=== PATIENT | male | born 1970 | race Caucasian/White ===

== ENCOUNTER 2019-06-06 12:16 | Emergency (ER) | payer BC, MEDICAID, OTHER ==
[2019-06-06 13:22] VITALS: BP 121/82
--- NOTE | 2019-06-06 13:53 | UC ---
General HPI - HPI Summary HPI Summary: 1. 3 MONTH HX OF INCREASING WEAKNESS, NAUSEA AND LOSS OF APPETITE. HE HAS A HX OF LEUKEMIA AND LAST HAD CHEMO TX ABOUT 1 MONTH AGO. HE IS BEING TX BY [facility] FOR THE LEUKEMIA. HE IS ON ZOFRAN WHICH DOESN'T HELP. HE DENIES F/C'S BUT DOES ADMIT TO A 10# WEIGHT LOSS SINCE HIS LAST VISIT/TX AT [facility]. PT GOES ON TO OFFER HE HAS HAD A WORSENING IN HIS ADENOPATHY AND THEY WANTED TO DO A LYMPH NODE BIOPSY; HOWEVER, HE CAN NOT MISS WORK FOR THAT SURGERY. PT WONDERS IF I CAN GIVE HIM "SOMETHING STRONGER" FOR THE NAUSEA. HE DENIES ABDOMINAL PAIN AND DIARRHEA. 2. SKIN TAG ON R LOWER EYE LID FOR ABOUT 3-4 MONTHS. WANTS TO HAVE IT REMOVED. 3. PAIN TO THE R SHOULDER, MAINLY LATERAL-POSTERIOR FOR ABOUT 1 YEAR. MUCH WORSE IF HE SLEEPS ON IT. NO HX INJURY, LIMITED ROM OR WEAKNESS. PAINTS FOR A LIVING WITH R ARM. NO NUMBNESS. - History of Current Complaint Chief Complaint: UCGI Stated Complaint: NAUSEA, VOMITING Time Seen by Provider: 06/06/19 12:56 Hx Obtained From: Patient Onset/Duration: Gradual Onset Timing: Constant Pain Intensity: 5 Associated Signs & Symptoms: Positive: Nausea, Weakness. Negative: Abdominal Pain, Cough, Chest Pain, Diarrhea, Fever, Palpitations, SOB, Vomiting - Allergy/Home Medications Allergies/Adverse Reactions: Allergies Allergy/AdvReac Type Severity Reaction Status Date / Time No Known Allergies Allergy Verified 06/06/19 13:01 Home Medications: Home Medications Acyclovir* [Zovirax 400 MG TAB*] 400 mg PO BID 06/06/19 [History Confirmed 06/06] DULoxetine CAP* [Cymbalta CAP*] 60 mg PO DAILY 06/06/19 [History Confirmed ] Ibuprofen/Diphenhydramine Cit [Advil Pm Caplet] 2 each PO QPM PRN 06/06/19 [ History Confirmed 06/06/19] Naproxen Sodium [Aleve] 440 mg PO QAM PRN 06/06/19 [History Confirmed 06/06/19] Omeprazole 20 mg PO QAM 06/06/19 [History Confirmed 06/06/19] Ondansetron HCl [Zofran] 8 mg PO Q8H PRN 06/06/19 [History Confirmed 06/06/19] Potassium Chlor TAB* [Klor Con ER TAB*] 20 meq PO BID 06/06/19 [History Confirmed 06/06/19] PMH/Surg Hx/FS Hx/Imm Hx - Additional Past Medical History Additional PMH: LEUKEMIA-SHANTE TX'S, NEUROPATHY(NEEDLES/PINS) FEET GI/ History: Gastroesophageal Reflux - Surgical History Surgical History: Yes Surgery Procedure, Year, and Place: abdominal hernia Fall 2017 - Family History Known Family History: Positive: Non-Contributory - Social History Occupation: Employed Full-time Lives: With Family Alcohol Use: Occasionally Substance Use Type: None Smoking Status (MU): Light Every Day Tobacco Smoker Type: Cigarettes Length of Time of Smoking/Using Tobacco: 2 PACKS PER WEEK Review of Systems All Other Systems Reviewed And Are Negative: Yes Constitutional: Positive: Fatigue. Negative: Fever, Chills ENT: Negative: Sore Throat, Ear Ache, Nasal Discharge Respiratory: Negative: Shortness Of Breath, Cough Cardiovascular: Negative: Palpitations, Chest Pain Gastrointestinal: Positive: Nausea. Negative: Abdominal Pain, Vomiting, Diarrhea Genitourinary: Negative: Dysuria Motor: Negative: Decreased ROM Musculoskeletal: Positive: Arthralgia - R SHOULDER. Negative: Decreased ROM, Edema Neurological: Positive: Weakness, Paresthesia - FEET, Numbness - FEET Physical Exam Triage Information Reviewed: Yes Appearance: Well-Appearing Vital Signs: Initial Vital Signs Temp 98.7 F 06/06/19 13:13 Pulse 95 06/06/19 13:13 Resp 24 06/06/19 13:13 BP 121/82 06/06/19 13:13 Pulse Ox 96 06/06/19 13:13 Vital Signs Reviewed: Yes Eyes: Positive: Conjunctiva Clear, Other: - 2-3mm skinlesion(tag) R lower lid by tarsal plate. ENT: Positive: Pharynx normal, TMs normal. Negative: Nasal congestion, Nasal drainage Neck: Positive: Supple, Nontender, No Lymphadenopathy Respiratory: Positive: Lungs clear, Normal breath sounds Cardiovascular: Positive: RRR, No Murmur Abdomen Description: Positive: Nontender, No Organomegaly, Soft Bowel Sounds: Positive: Present Musculoskeletal: Positive: Other: - RUE: no gross deformity, swelling or discoloration. tender over R lateral and posterior shoulder. s/v/m intact including full rom R shoulder. Negative drop arm test. Neurological: Positive: Alert Psychological: Positive: Age Appropriate Behavior Skin Exam: Normal - Additional Comments no overt cervical, axillary, epitrochlear adenopathy. Course/Dx - Differential Dx - Multi-Symptom Differential Diagnoses: Other - 1. pt's hx of leukemia with weakness, nausea, loss of appetite and 10# weight loss requires an emergent evaluation. pt unhappy with his tx in [place] because the oncologist doesn't spend time with him. he does not want to go to the [facility] ER due to prior experience thus [facility] [place] advised. He has to cone picker his son now and will concsider going later. Pt advised of risk for worsening, disability and due to delay/lack of additonal evaluation/tx. He is A&Ox3 thus I must respect his wish to now go to ER right now. He will leave ama. 2. I will still give pt a referal for the eye lid skin lesion/tag. 3. I will still give pt a referal for his shoulder pain. It would not be in the pt's best interest to not address his skin lesion and shoulder pain. pt also given a referal to the [facility] [place] [facility]/onc should he wish to change his leukemia provider. - Diagnoses Provider Diagnosis: Leukemia, Skin tag, Shoulder pain Discharge - Sign-Out/Discharge Documenting (check all that apply): Patient Departure All imaging exams completed and their final reports reviewed: No Studies - Discharge Plan Condition: Stable Disposition: AGAINST MEDICAL ADVICE Patient Education Materials: Shoulder Pain (ED) Forms: *Gen. Provider Communication Referrals: Obed Shepherd MD [Medical Doctor] - As Soon As Possible Kathleen Vale MD [Medical Doctor] - As Soon As Possible [facility] [Provider Group] Additional Instructions: GO TO THE [facility] AT ANY TIME IF YOU CHANGE YOUR MIND. IF YOU DO NOT GO TO THE ER, GO TO YOUR PRIMARY CARE TODAY. 1. FOLLOW UP WITH DR SHEPHERD FOR THE SHOULDER PAIN. 2. FOLLOW UP WITH DR VALE FOR THE SKIN LESION ON EYE LID. 3. CALL THE [facility] SOON POSSIBLE IF YOU DECIDE NOT TO CONTINUE TREATMENT IN [place]. - Billing Disposition and Condition Condition: STABLE Disposition: Against Medical Advice - Attestation Statements Provider Attestation: This patient was not seen by me. I was available for consult. BUD
== END 2019-06-06 14:15 | disposition left against medical advice (07) ==
LOC: UCCORT 12:16
DX: C95.90 Leukemia, unspecified not having achieved remission (principal); L91.8 Other hypertrophic disorders of the skin; M25.511 Pain in right shoulder; Z92.21 Personal history of antineoplastic chemotherapy; F17.210 Nicotine dependence, cigarettes, uncomplicated
CPT/HCPCS: 99212; G0463